=== PATIENT | male | born 1940 | race Caucasian/White ===

== ENCOUNTER → 2017-09-23 | Outpatient (CLI) | payer MEDICARE, BC ==
[~2017-09-23] MED LIST: AMLO2.5T PO; ASPI81TA23 PO; CARV3.12 PO; GLIM2TAB PO; TAMS5CAP PO
[2017-09-23 11:21] LABS: AUTOMATED NEUTROPHIL # 2.6 TH/MM3 (1.8-7.7); BASOPHIL % 0.8 % (0.0-2.0); EOSINOPHIL # 0.1 TH/MM3 (0-0.4); EOSINOPHIL % 1.9 % (0.0-4.0); HEMATOCRIT 38.9 % (39.0-51.0); HEMOGLOBIN 13.3 GM/DL (13.0-17.0); LYMPH % 33.4 % (9.0-44.0); LYMPHOCYTE # 1.6 TH/MM3 (1.0-4.8); MEAN CELL VOLUME 93.3 FL (80.0-100.0); MEAN CORPUSCULAR HGB CONC 34.3 % (32.0-36.0); MEAN PLATELET VOLUME 8.1 FL (7.0-11.0); MONO % 9.1 % (0.0-8.0); MONOCYTE # 0.4 TH/MM3 (0-0.9); NEUT % 54.8 % (16.0-70.0); PLATELET COUNT 163 TH/MM3 (150-450); RED BLOOD COUNT 4.17 MIL/MM3 (4.50-5.90); RED CELL DISTRIBUTION WIDTH 14.2 % (11.6-17.2); WHITE BLOOD COUNT 4.8 TH/MM3 (4.0-11.0)
[2017-09-23 11:24] LABS: BILIRUBIN, URINE NEG (NEG); BLOOD, URINE TRACE (NEG); GLUCOSE,URINE NEG (NEG); KETONE, URINE NEG (NEG); NITRITE,URINE NEG (NEG); PH, URINE 5.5 (5.0-8.5); URINE COLOR LIGHT-YELLOW (YELLW/STRAW); URINE LEUKOCYTE ESTERASE NEG (NEG)
[2017-09-23 11:29] LABS: PROTHROMBIN TIME - PATIENT 10.4 SEC (9.8-11.6)
[2017-09-23 11:38] LABS: WESTERGREN SEDIMENTATION RATE 40 mm/hr (0-20)
[2017-09-23 11:44] LABS: ALBUMIN 3.9 GM/DL (3.4-5.0); ALT (GPT) 23 U/L (12-78); AST (GOT) 17 U/L (15-37); BICARBONATE 26.5 MEQ/L (21.0-32.0); BLOOD UREA NITROGEN 44 MG/DL (7-18); CALCIUM 9.2 MG/DL (8.5-10.1); CHLORIDE 106 MEQ/L (98-107); CREATININE 2.48 MG/DL (0.60-1.30); GLOMERULAR FILTRATION RATE 25 ML/MIN (>89); GLUCOSE,FASTING 183 MG/DL (74-99); SODIUM (NA) 138 MEQ/L (136-145)
[2017-09-23 11:47] LABS: ALKALINE PHOSPHATASE 58 U/L (45-117); TOTAL BILIRUBIN ADULT 0.7 MG/DL (0.2-1.0); TOTAL PROTEIN 8.2 GM/DL (6.4-8.2)
--- NOTE | 2017-09-23 11:59 | RADRPT ---
EXAM DATE/TIME: 09/23/2017 11:24 [facility] COMPARISON: No previous studies available for comparison. INDICATIONS : Evaluate for pneumonia, pneumothorax and communicable diseases. Pre-op knee replacement MEDICAL HISTORY : None. SURGICAL HISTORY : CABG. ENCOUNTER: Initial ACUITY: 1 day PAIN SCORE: 0/10 LOCATION: chest FINDINGS: The cardiac silhouette is normal in transverse diameter. Median sternotomy wires are present. The celeste gs are free of acute parenchymal opacity. No effusions are identified. CONCLUSION: 1. No acute cardiopulmonary disease. Kingsley Briggs MD on September 23, 2017 at 11:56 Board Certified Radiologist. This report was verified electronically.
--- NOTE | 2017-09-23 18:22 | EKG ---
Date Performed: 09/23/2017 Time Performed: 10:48:28 PTAGE: 77 years EKG: Sinus rhythm RIGHT BUNDLE BRANCH BLOCK LEFT POSTERIOR FASCICULAR BLOCK ABNORMAL ECG NO PREVIOUS TRACING DOCTOR: Nelida Mendoza Interpretating Date/Time 09/23/2017 18:19:48
== END ==
LOC: CPRE 10:23
PROVIDERS: ATTEND Orthopaedic Surgery
DX: Z01.812 Encounter for preprocedural laboratory examination (principal); Z01.811 Encounter for preprocedural respiratory examination; Z01.810 Encounter for preprocedural cardiovascular examination; M17.11 Unilateral primary osteoarthritis, right knee; M25.50 Pain in unspecified joint; M79.609 Pain in unspecified limb; I45.10 Unspecified right bundle-branch block; Z96.60 Presence of unspecified orthopedic joint implant
CPT/HCPCS: 36415; 71046; 80053; 81001; 85025; 85610; 85652; 85730; 93005

== ENCOUNTER 2017-10-08 05:30 | Inpatient (IN) | payer MEDICARE, BC ==
[~2017-10-08] VITALS: Ht 177.8 cm; Wt 107.0 kg
[2017-10-08] MEDS ORDERED: CHLORHEXIDINE GLUCONATE 4% SOLN 120 ML BTL TOPICAL SCH (06:00)
[2017-10-08] MEDS ORDERED: ceFAZolin 2 GM PREMIX 50 ML IV SCH (06:00)
[2017-10-08] MEDS ORDERED: POVIDONE IODINE 7.5% SCRUB 118 ML BOTTLE TOPICAL SCH (06:00)
[2017-10-08] MEDS ORDERED: DEXAMETHASONE SOD PHOS 20 MG/5 ML VIAL IV PUSH ONE (06:00)
[2017-10-08] MEDS ORDERED: VANCOMYCIN 1000 MG/NS 250 ML (for <70 kg) IV SCH ×2 (06:00)
[2017-10-08] MEDS ORDERED: LACTATED RINGER'S 1000 ML IV PRN (06:15)
[2017-10-08] MEDS ORDERED: CHLORHEXIDINE GLUCONATE 2 % 1 PACK (2 CLOTHS) TOPICAL PRN (06:15)
[2017-10-08] MEDS ORDERED: POVIDONE IODINE 5% (ANTISEPSIS KIT) 4 APPLICATIONS EACH NARE PRN (06:15)
[2017-10-08] MEDS ORDERED: SODIUM CHLORID 0.9% 500 ML IV PRN (06:15)
[2017-10-08] MEDS ORDERED: METOPROLOL TARTRATE 25 MG TAB PO PRN (06:15)
--- NOTE | 2017-10-08 06:48 | HHI.DCPOC ---
Discharge Care Plan Diagnosis: (1) Primary localized osteoarthrosis, lower leg (2) Status post total knee replacement, right Your Health Problems Are: Difficulty with ADL Goals to Promote Your Health * To prevent worsening of your condition and complications * To maintain your health at the optimal level Directions to Meet Your Goals Take your medications as prescribed Follow your dietary instruction Follow activity as directed Keep your appointments as scheduled Take your immunizations and boosters as scheduled If your symptoms worsen call your PCP, if no PCP go to Urgent Care Center or Emergency Room Smoking is Dangerous to Your Health. Avoid second hand smoke Call the 24-hour hour crisis hotline for domestic abuse at Ramana Loco Oct 08, 2017 06:48
--- NOTE | 2017-10-08 06:49 | HHI.FF ---
Face to Face Verification Diagnosis: (1) Primary localized osteoarthrosis, lower leg (2) Status post total knee replacement, right Physical Therapy Gait training, Transfer training, bed to chair Knee: Total knee Right LE Weight Bearing: WB as tolerated Right LE Range of Motion: Active ROM Nursing Nursing: Gonzalo weems Dressing Changes: Do not change dressing Additional Instructions first dressing change in the office I have seen patient Xavier Marshall on 10/08/17. My clinical findings support the need for the requested home health care services because: Limited ability to care for self High risk of falls I certify that my clinical findings support that this patient is homebound because: Post-op weakness Unsteady gait/balance Ramana Loco Oct 08, 2017 06:49
[2017-10-08] MEDS ORDERED: WALKER WHEELS/F1 MIS (06:51)
[2017-10-08] MEDS ORDERED: COMMODE 3-IN-11 MIS (06:51)
[2017-10-08] MEDS ORDERED: CPMMACHINE (06:51)
[2017-10-08] MEDS ORDERED: BUPIVACAINE LIPOSOME PF 1.3% 20 ML VIAL ONE (07:15)
[2017-10-08] MEDS ORDERED: MIDAZOLAM HCL 2 MG/2 ML VIAL ONE ×2 (07:15→11:01)
[2017-10-08] MEDS ORDERED: GENTAMICIN SULFATE 80 MG/2 ML VIAL ONE (07:28)
[2017-10-08] MEDS ORDERED: FAMOTIDINE 20 MG/2 ML VIAL ONE (07:30)
[2017-10-08] MEDS ORDERED: PROPOFOL 200 MG/20 ML AMP ONE (07:46)
[2017-10-08] MEDS ORDERED: ACETAMINOPHEN 1000 MG/100 ML 100 ML IV ONE (07:53)
[2017-10-08] MEDS ORDERED: ROPIVACAINE PERI-ARTICULAR INJECTION. P-ARTICULR SCH ×5 (08:30)
[2017-10-08] MEDS ORDERED: SODIUM CHLORIDE 0.9% IV SCH ×2 (08:30→11:00)
[2017-10-08] MEDS ORDERED: TRANEXAMIC ACID IV SCH ×2 (08:30→11:00)
[2017-10-08] MEDS: SODIUM CHLOR 0.9% 1000 ML INJ 1,000 ML IV SCH ×2 (10:14→20:26)
[2017-10-08] MEDS ORDERED: diphenhydrAMINE HCL 50 MG/ML VIAL IV PUSH PRN (10:15)
[2017-10-08] MEDS ORDERED: BISACODYL 10 MG SUPP RECTAL PRN (10:15)
[2017-10-08] MEDS ORDERED: ONDANSETRON HCL 4 MG/2 ML VIAL IVP PRN (10:15)
[2017-10-08] MEDS ORDERED: ALUMINUM/MAGNESIUM/SIMETH 30 ML CUP PO PRN (10:15)
[2017-10-08] MEDS ORDERED: NALOXONE HCL 0.4 MG/ML AMP IV PUSH PRN (10:15)
[2017-10-08] MEDS ORDERED: MAGNESIUM HYDROXIDE SUSP 30 ML CUP PO PRN (10:15)
[2017-10-08] MEDS ORDERED: Post-op Orders (for Pharmacy) XX ONE (10:15)
--- NOTE | 2017-10-08 10:24 | PD.OP ---
cc: Dayron Guerrero MD Operative Report Date of Surgery: Oct 08, 2017 Preoperative Diagnosis: Right knee severe osteoarthritis Postoperative Diagnosis: Same Procedure: Right total knee arthroplasty Anesthesia: adductor canal block and spinal Surgeon: Dayron Guerrero Shearing Machine Operator(s): MABEL Jovel The surgical procedure was assisted by my Advanced Registered Nurse Practitioner. My WASTEWATER TREATMENT OPERATOR presence was necessary throughout this case for the manipulation and positioning of the surgical extremity. My WASTEWATER TREATMENT OPERATOR was assisting me throughout the duration of this procedure. The skill set of an Advance Registered Nurse Practitioner was medically necessary to complete this procedure. During the surgical case, the surgical elastic knitter was working at the back table and the Advance Registered Nurse Practitioner was directly assisting me. Operation and Findings: IMPLANTS: DePuy Attune: Patella: size 38. Femur, posterior stabilized size 9. Tibia, rotating platform size 8. Tibial insert, rotating platform, posterior stabilized size 5 mm thickness. ESTIMATED BLOOD LOSS: 150 cc TOURNIQUET TIME: 56 minutes at 250 mmHg pressure. JUSTIFICATION FOR PROCEDURE: The patient has end-stage osteoarthritis to the knee. There is an attached conservative measures pathway form in the chart that describes the nonoperative measures that were undertaken prior to consideration of surgical management. The patient understood the risks and benefits of surgical management. See my office notes for further details PROCEDURE: The patient was brought back to the operative theatre. Adequate anesthesia was obtained. The patient received intravenous vancomycin and Ancef. The lower extremity was prepped and draped in the usual sterile fashion.The leg was exsanguinated, the tourniquet was raised. A standard anterior incision was performed followed by medial parapatellar arthrotomy was performed. End-stage arthritis was identified. Osteotomy of the patella was performed. We drilled holes for the patella. We trialed the patella component. We placed an intramedullary guide into the distal femur. We ultimately resected 14 mm off of the distal femur in 5 degrees of valgus. The remnants of the ACL and PCL were resected. Osteotomy of the proximal tibia was performed, resecting 5 mm off of the medial side. This was done with 3 degrees of posterior slope using an extramedullary guide. The distal end of the guide was placed in the mid aspect of the ankle. The femur was sized, and four chamfer cuts were completed in 3 of external rotation. We then cut the central box in the distal femur to replace the PCL. We resected the remnants of the menisci and removed osteophytes off of the femur and tibia. We then trialed the knee. We punched the tibia for the keel, and then used standard technique to cement in components. Excess cement was removed. We trialed the knee again and the final polyethylene thickness was chosen to provide extension to 0 degrees, and flexion of 140 degrees to gravity. The ligaments were appropriately balanced. Lateral release was necessary to obtain excellent patellofemoral tracking. The tourniquet was released and adequate hemostasis was obtained. An intra- articular injection of a ropivacaine cocktail was injected. The posterior knee was inspected for excess cement, which was removed. The final polyethylene was put into position after thorough irrigation. We then closed deep fascia with a #2 Stratafix followed by skin with 2-0 Vicryl followed by phillip. Postop plan is to weight-bear as tolerated. DVT prophylaxis will be performed with [place], CUONG helton, early mobilization, and Lovenox at 30 mg daily for reduced renal dosing (10 days) followed by postoperative baby aspirin. Dayron Guerrero MD Oct 08, 2017 10:24
[2017-10-08] MEDS ORDERED: DO NOT ADM ANY ANTICOAGULANT DRUGS PRN (10:49)
[2017-10-08] MEDS ORDERED: *MEPERIDINE 25 MG INJ VIAL PERIprocedural Use ONLY ONE (10:51)
[2017-10-08] MEDS ORDERED: MORPHINE SULFATE 2 MG/ML INJ IV PUSH PRN (11:00)
[2017-10-08] MEDS ORDERED: PILL SPLITTER OTHER PRN (11:00)
[2017-10-08] MEDS ORDERED: *morphine SULFATE 10 MG/ML PERIprocedure ONLY ONE ×2 (11:11→11:28)
--- NOTE | 2017-10-08 11:49 | RADRPT ---
EXAM DATE/TIME: 10/08/2017 11:18 [facility] COMPARISON: No previous studies available for comparison. INDICATIONS : Post op right total knee replacement. MEDICAL HISTORY : None. SURGICAL HISTORY : CABG. ENCOUNTER: Initial ACUITY: 1 day PAIN SCORE: 4/10 LOCATION: Right Knee FINDINGS: 2 views of the knee show a total knee prosthesis in good position. No fracture or dislocation is obse rved. Soft tissue swelling is noted. Air and fluid is noted within the joint. CONCLUSION: Total knee arthroplasty in good position. Tyler Escobar Jr., MD on October 08, 2017 at 11:45 Board Certified Radiologist. This report was verified electronically.
[2017-10-08] MEDS ORDERED: HYDROmorphone HCL PF 2 MG/ML VIAL ONE (11:59)
[2017-10-08] MEDS ORDERED: ePHEDrine/NS 25 MG/5 ML SYRINGE IV ONE (12:00)
[2017-10-08] MEDS ORDERED: PROPOFOL 200 MG/20 ML AMP IV ONE (12:00)
[2017-10-08] MEDS ORDERED: LIDOCAINE HCL 1% PF 5 ML SYRINGE OTHER ONE (12:00)
[2017-10-08 15:30] VITALS: BP 149/64; PULSE 72; RESP 18; TEMP 96.4; O2SAT 94
[2017-10-08] MEDS ORDERED: DEXTROSE 50% IN WATER 50 ML VIAL(D50) IV PUSH PRN (16:00)
[2017-10-08] MEDS ORDERED: GLUCAGON 1 MG/ML VIAL OTHER PRN (16:00)
--- NOTE | 2017-10-08 16:11 | PD.CONS ---
HPI Service [facility] Consult Requested By Reason for Consult medical management Primary Care Physician Shalini Bennett MD Diagnoses: History of Present Illness patient is a 77 y/o male with history of osteoarthritis, CAD, hypertension and diabetes underwent right total knee arthroplasty today. at the time of my evaluation he was resting comfortably with no acute distress. pain to the right knee was mild . he denies any other complaints. Review of Systems Constitutional: DENIES: Fever, Weight loss, Chills, Night Sweats Eyes: DENIES: Blurred vision, Diplopia, Vision loss, Double Vision Ears, nose, mouth, throat: DENIES: Tinnitus, Vertigo, Throat pain, Epistaxis Respiratory: DENIES: Apneas, Cough, Snoring, Wheezing, Hemoptysis, Sputum production, Shortness of breath Cardiovascular: DENIES: Chest pain, Palpitations, Syncope, Dyspnea on Exertion , PND, Lower Extremity Edema, Orthopnea, Claudication Gastrointestinal: DENIES: Abdominal pain, Black stools, Bloody stools, Constipation, Diarrhea, Nausea, Vomiting, Difficulty Swallowing, Anorexia Genitourinary: DENIES: Urinary frequency, Urgency, Hematuria, Dysuria Musculoskeletal: COMPLAINS OF: Joint pain (right knee.), DENIES: Muscle aches, Stiffness, Joint Swelling Integumentary: DENIES: Rash Neurologic: DENIES: Abnormal gait, Headache, Localized weakness, Paresthesias, Seizures, Speech Problems, Tremor, Poor Balance Psychiatric: DENIES: Anxiety, Confusion, Mood changes, Depression, Hallucinations, Agitation, Suicidal Ideation, Homicidal Ideation, Delusions Past Family Social History Allergies: Coded Allergies: No Known Allergies (Unverified , 09/23/17) Past Medical History CAD/ hypertension/ diabetes mellitus/ CKD Past Surgical History CABG/ ankle surgery. Reported Medications Amaryl/ Norvasc/ Coreg/aspirin. Active Ordered Medications Inpatient Medications Acetaminophen/ Hydrocodone Bitart ([place] 5-325 Mg) 2 tab Q4H PRN PO PAIN SCALE 5 TO 10; Start 10/08/17 at 10:15 Al Hydrox/Mg Hydrox/Simethicone (Mag-Al Plus Susp Liq) 30 ml Q6H PRN PO INDIGESTION; Start 10/08/17 at 10:15 Amlodipine Besylate (Norvasc) 2.5 mg DAILY PO ; Start 10/09/17 at 09:00 Bisacodyl (Dulcolax Supp) 10 mg DAILY PRN RECTAL CONSTIPATION; Start 10/08/17 at 10:15 Carvedilol (Coreg) 3.125 mg BID PO ; Start 10/08/17 at 21:00 Cefazolin Sodium 1000 mg/Sodium Chloride 100 ml @ 200 mls/hr Q6H IV Last administered on 10/08/17at 14:00; Start 10/08/17 at 14:00; Stop 10/09/17 at 02:29 Cefazolin Sodium/ Dextrose 50 ml @ 100 mls/hr COSMETIC CONSULTANT IV ; Start 10/08/17 at 06 :00; Stop 10/11/17 at 05:59 Chlorhexidine Gluconate (Chlorhexidine 2% Cloth) 3 pack COSMETIC CONSULTANT PRN TOPICAL SEE LABEL COMMENTS Last administered on 10/08/17at 05:50; Start 10/08/17 at 06:15; Stop 10/11/17 at 06:14 Chlorhexidine Gluconate (Hibiclens 4% Top Soln) 1 applic ONCE TOPICAL ; Start at 06:00; Stop 10/11/17 at 05:59 Dexamethasone Sodium Phosphate (Decadron Inj) 10 mg ONCE ONCE IV ; Start at 07:45; Stop 10/09/17 at 07:46 Diphenhydramine HCl (Benadryl Inj) 25 mg Q6H PRN IV PUSH ITCHING; Start at 10:15 Docusate Sodium (Colace) 100 mg BID PO ; Start 10/09/17 at 21:00 Enoxaparin Sodium (Lovenox Inj) 30 mg Q24H SQ ; Start 10/09/17 at 10:00 Glimepiride (Amaryl) 2 mg DAILY PO ; Start 10/09/17 at 09:00 Lactated Ringer's 1,000 ml @ 30 mls/hr Q24H PRN IV SEE LABEL COMMENTS Last administered on 10/08/17at 06:30; Start 10/08/17 at 06:15; Stop 10/11/17 at 06:14 Magnesium Hydroxide (Milk Of Magnesia Liq) 30 ml DAILY PRN PO CONSTIPATION; Start 10/08/17 at 10:15 Metoprolol Tartrate (Lopressor) 25 mg COSMETIC CONSULTANT PRN PO SEE LABEL COMMENTS; Start 10/08/17 at 06:15; Stop 10/11/17 at 06:14 Miscellaneous (Pill Splitter) 1 ea UNSCH PRN OTHER SEE LABEL COMMENTS; Start at 11:00 Miscellaneous Information ALL NURSING DEPARTME... UNSCH PRN .XX SEE LABEL COMMENTS; Start 10/08/17 at 10:49; Stop 10/09/17 at 10:48 Miscellaneous Information (Post-op Orders (for Pharmacy)) STAT ONCE XX ; Start 10/08/17 at 10:15; Stop 10/08/17 at 10:36; Status DC Morphine Sulfate (Morphine Inj) 2 mg Q3H PRN IV PUSH pain greater than 5; Start 10/08/17 at 11:00 Multivitamins/ Minerals Therapeutic (Theragran M Tab) 1 tab BID PO ; Start at 21:00; Stop 12/08/17 at 20:59 Naloxone HCl (Narcan Inj) 0.4 mg UNSCH PRN IV PUSH RESPIRATORY RATE LESS THAN 10; Start 10/08/17 at 10:15 Ondansetron HCl (Zofran Inj) 4 mg Q6H PRN IVP NAUSEA OR VOMITING; Start at 10:15 Povidone Iodine (Betadine 5% Antisepsis Kit) 1 applic COSMETIC CONSULTANT PRN EACH NARE SEE LABEL COMMENTS Last administered on 10/08/17at 06:50; Start 10/08/17 at 06:15; Stop 10/11/17 at 06:14 Povidone Iodine (Betadine 7.5% Scrub) 1 applic ONCE TOPICAL ; Start 10/08/17 at 06:00; Stop 10/11/17 at 05:59 Ropivacaine 24.63 ml/Ketorolac Tromethamine 30 mg/Epinephrine HCl 0.5 mg/ Clonidine 80 mcg/ Sodium Chloride 100 ml @ 200 mls/hr ONCE P-ARTICULR Last administered on 10/08/17at 08:54; Start 10/08/17 at 08:30; Stop 10/08/17 at 14:30; Status DC Sodium Chloride 1,000 ml @ 100 mls/hr Q10H IV Last administered on 10/08/17at 10 :14; Start 10/08/17 at 10:14 Tamsulosin HCl (Flomax) 0.4 mg HS PO ; Start 10/08/17 at 21:00 Tranexamic Acid 1070 mg/Sodium Chloride 110.7 ml @ 200 mls/hr UNSCH IV Last administered on 10/08/17at 11:37; Start 10/08/17 at 11:00; Stop 10/08/17 at 17:00 Vancomycin HCl 1000 mg/Sodium Chloride 250 ml @ 250 mls/hr COSMETIC CONSULTANT IV Last administered on 10/08/17at 07:27; Start 10/08/17 at 06:00; Stop 10/11/17 at 05:59 Zolpidem Tartrate (Ambien) 5 mg HS PRN PO SLEEP; Start 10/08/17 at 21:00 Family History not relevant to this consult. Social History quit smoking years ago- drinks every other day. Physical Exam Vital Signs Vital Signs Date Time Temp Pulse Resp B/P (MAP) Pulse Ox O2 Delivery O2 Flow Rate FiO2 10/08/17 14:27 77 16 147/63 (91) 99 Nasal Cannula 2 10/08/17 11:30 72 16 154/64 (94) 98 Nasal Cannula 2 10/08/17 11:15 72 16 156/68 (97) 98 Nasal Cannula 2 10/08/17 11:00 75 16 122/87 (99) 97 Nasal Cannula 2 10/08/17 10:45 97.8 77 16 122/87 (99) 98 Nasal Cannula 2 10/08/17 07:11 2 10/08/17 06:36 98.8 66 20 154/74 (100) 96 Physical Exam GENERAL: This is a well-nourished, well-developed patient, in no apparent distress. SKIN: No rashes, ecchymoses or lesions. Cool and dry. HEAD: Atraumatic. Normocephalic. No temporal or scalp tenderness. EYES: Pupils equal round and reactive. Extraocular motions intact. No scleral icterus. No injection or drainage. ENT: Nose without bleeding, purulent drainage or septal hematoma. Throat without erythema, tonsillar hypertrophy or exudate. Uvula midline. Airway patent. NECK: Trachea midline. No JVD or lymphadenopathy. Supple, nontender, no meningeal signs. CARDIOVASCULAR: Regular rate and rhythm without murmurs, gallops, or rubs. RESPIRATORY: Clear to auscultation. Breath sounds equal bilaterally. No wheezes , rales, or rhonchi. GASTROINTESTINAL: Abdomen soft, non-tender, nondistended. No hepato-splenomegaly , or palpable masses. No guarding. MUSCULOSKELETAL: right knee/leg covered with clean dressing. NEUROLOGICAL: Awake and alert. Cranial nerves II through XII intact. Motor and sensory grossly within normal limits. Five out of 5 muscle strength in all muscle groups. Normal speech. Imaging Last Impressions Knee X-Ray 10/08/17 1014 Signed Impressions: Service Date/Time: Sunday, October 08, 2017 11:18 - CONCLUSION: Total knee arthroplasty in good position. Tyler Escobar Jr., MD Assessment and Plan Assessment and Plan A/P - osteoarthritis- s/p right total knee arthroplasty continue with pain control and PT- management per ortho. -CAD; resumed coreg- will resume aspirin when ok with ortho. -hypertension; continue home meds- will monitor and adjust the regimen as needed. -diabetes mellitus; hold oral hypoglycemics for now - accu-check with SSI -chronic renal insufficiency; will monitor- BMP tomorrow. -DVT prophylaxis with subq Lovenox- per ortho. thank you for the consult. Discussed Condition With the patient. Faye Molina MD Oct 08, 2017 16:11
[2017-10-08] MEDS: INSULIN ASPART SUPPLEMENTAL SCALE SQ SCH ×2 (18:15→20:29)
[2017-10-08 19:19] VITALS: BP 137/61; PULSE 76; RESP 18; TEMP 96.9; O2SAT 96
[2017-10-08] MEDS: CARVEDILOL 3.125 MG TAB PO SCH (20:29)
[2017-10-08] MEDS: TAMSULOSIN HCL 0.4 MG CAP PO SCH (20:29)
[2017-10-08] MEDS ORDERED: ZOLPIDEM TARTRATE 5 MG TAB PO PRN (21:00)
[2017-10-08 23:20] VITALS: BP 154/68; PULSE 65; RESP 18; TEMP 96.8; O2SAT 98
[2017-10-08] MEDS: ACETAMINOPHEN/HYDROcodone 325 MG/5 MG TAB PO PRN (23:30)
[2017-10-09 03:35] VITALS: BP 129/59; PULSE 71; RESP 18; TEMP 97.1; O2SAT 94
[2017-10-09] MEDS: SODIUM CHLOR 0.9% 1000 ML INJ 1,000 ML IV SCH ×2 (06:14→16:14)
[2017-10-09] MEDS ORDERED: DEXAMETHASONE SOD PHOS 20 MG/5 ML VIAL IV ONE (07:45)
[2017-10-09 07:54] VITALS: BP 151/67; PULSE 60; RESP 17; TEMP 96.6; O2SAT 96
[2017-10-09] MEDS: INSULIN ASPART SUPPLEMENTAL SCALE SQ SCH ×4 (08:00→20:28)
[2017-10-09] MEDS: amLODIPine BESYLATE 5 MG TAB PO SCH (08:03)
[2017-10-09] MEDS: CARVEDILOL 3.125 MG TAB PO SCH ×2 (08:04→20:27)
[2017-10-09] MEDS: ACETAMINOPHEN/HYDROcodone 325 MG/5 MG TAB PO PRN ×4 (08:04→20:27)
[2017-10-09 08:17] LABS: HEMOGLOBIN 11.4 GM/DL (13.0-17.0); MEAN CELL VOLUME 93.1 FL (80.0-100.0); MEAN CORPUSCULAR HEMOGLOBIN 32.3 PG (27.0-34.0); MEAN CORPUSCULAR HGB CONC 34.6 % (32.0-36.0); MEAN PLATELET VOLUME 7.9 FL (7.0-11.0); PLATELET COUNT 159 TH/MM3 (150-450); RED BLOOD COUNT 3.54 MIL/MM3 (4.50-5.90); RED CELL DISTRIBUTION WIDTH 14.3 % (11.6-17.2); WHITE BLOOD COUNT 9.7 TH/MM3 (4.0-11.0)
[2017-10-09 08:39] LABS: BICARBONATE 21.9 MEQ/L (21.0-32.0); CALCIUM 7.9 MG/DL (8.5-10.1); CREATININE 3.22 MG/DL (0.60-1.30)
[2017-10-09] MEDS ORDERED: GLIMEPIRIDE 2 MG TAB PO SCH (09:00)
[2017-10-09] MEDS: ENOXAPARIN SODIUM 30 MG/0.3 ML SYRINGE SQ SCH (10:09)
--- NOTE | 2017-10-09 11:24 | HHI.PR ---
Subjective Remarks in no acute distress. pain is controlled. no new complaints. Objective Vitals Vital Signs Date Time Temp Pulse Resp B/P (MAP) Pulse Ox O2 Delivery O2 Flow Rate FiO2 10/09/17 09:04 18 10/09/17 07:54 96.6 60 17 151/67 (95) 96 10/09/17 03:35 97.1 71 18 129/59 (82) 94 10/08/17 23:20 96.8 65 18 154/68 (96) 98 10/08/17 19:19 96.9 76 18 137/61 (86) 96 10/08/17 15:30 96.4 72 18 149/64 (92) 94 10/08/17 14:27 77 16 147/63 (91) 99 Nasal Cannula 2 10/08/17 11:30 72 16 154/64 (94) 98 Nasal Cannula 2 I/O 10/08/17 10/08/17 10/08/17 10/09/17 10/09/17 10/09/17 07:00 15:00 23:00 07:00 15:00 23:00 Intake Total 1350 ml 360 ml 360 ml Output Total 125 ml Balance 1225 ml 360 ml 360 ml Intake Oral 360 ml 360 ml Other 1350 ml Output Estimated Blood Loss 125 ml # Voids 2 1 # Bowel Movements 0 0 Result Diagram: 10/09/1728 10/09/17 0628 Imaging Last Impressions Knee X-Ray 10/08/17 1014 Signed Impressions: Service Date/Time: Sunday, October 08, 2017 11:18 - CONCLUSION: Total knee arthroplasty in good position. Tyler Escobar Jr., MD Objective Remarks GENERAL: This is a well-nourished, well-developed patient, in no apparent distress. CARDIOVASCULAR: Regular rate and regular rhythm without murmurs, gallops, or rubs. RESPIRATORY: Clear to auscultation. Breath sounds equal bilaterally. No wheezes , rales, or rhonchi. GASTROINTESTINAL: Abdomen soft, non-tender, nondistended. Normal, active bowel sounds MUSCULOSKELETAL: Extremities without clubbing, cyanosis, or edema. NEURO: Alert & Oriented x4 to person, place, time, situation. Moves all ext x4 Medications and IVs Inpatient Medications Acetaminophen/ Hydrocodone Bitart ([place] 5-325 Mg) 2 tab Q4H PRN PO PAIN SCALE 5 TO 10; Start 10/08/17 at 10:15 Al Hydrox/Mg Hydrox/Simethicone (Mag-Al Plus Susp Liq) 30 ml Q6H PRN PO INDIGESTION; Start 10/08/17 at 10:15 Amlodipine Besylate (Norvasc) 2.5 mg DAILY PO Last administered on 10/09/17at 08: 03; Start 10/09/17 at 09:00 Bisacodyl (Dulcolax Supp) 10 mg DAILY PRN RECTAL CONSTIPATION; Start 10/08/17 at 10:15 Carvedilol (Coreg) 3.125 mg BID PO Last administered on 10/09/17at 08:04; Start 10/08/17 at 21:00 Cefazolin Sodium 1000 mg/Sodium Chloride 100 ml @ 200 mls/hr Q6H IV Last administered on 10/09/17at 02:19; Start 10/08/17 at 14:00; Stop 10/09/17 at 02:29; Status DC Cefazolin Sodium/ Dextrose 50 ml @ 100 mls/hr INDUSTRIAL MAINTENANCE TECHNICIAN IV ; Start 10/08/17 at 06 :00; Stop 10/11/17 at 05:59 Chlorhexidine Gluconate (Chlorhexidine 2% Cloth) 3 pack INDUSTRIAL MAINTENANCE TECHNICIAN PRN TOPICAL SEE LABEL COMMENTS Last administered on 10/08/17at 05:50; Start 10/08/17 at 06:15; Stop 10/11/17 at 06:14 Chlorhexidine Gluconate (Hibiclens 4% Top Soln) 1 applic ONCE TOPICAL ; Start at 06:00; Stop 10/11/17 at 05:59 Dexamethasone Sodium Phosphate (Decadron Inj) 10 mg ONCE ONCE IV Last administered on 10/09/17at 08:05; Start 10/09/17 at 07:45; Stop 10/09/17 at 07:46; Status DC Dextrose (D50w (Vial) Inj) 50 ml UNSCH PRN IV PUSH HYPOGLYCEMIA-SEE COMMENTS; Start 10/08/17 at 16:00 Diphenhydramine HCl (Benadryl Inj) 25 mg Q6H PRN IV PUSH ITCHING; Start at 10:15 Docusate Sodium (Colace) 100 mg BID PO ; Start 10/09/17 at 21:00 Enoxaparin Sodium (Lovenox Inj) 30 mg Q24H SQ Last administered on 10/09/17at 10: 09; Start 10/09/17 at 10:00 Glimepiride (Amaryl) 2 mg DAILY PO Last administered on 10/09/17at 08:04; Start 10/09/17 at 09:00; Status Future Hold Glucagon (Glucagon Inj) 1 mg UNSCH PRN OTHER HYPOGLYCEMIA-SEE COMMENTS; Start 10/08/17 at 16:00 Insulin Aspart (NovoLOG SUPPLEMENTAL SCALE) 1 ACHS SLIDING SCALE SQ Last administered on 10/08/17at 20:29; Start 10/08/17 at 17:00 Lactated Ringer's 1,000 ml @ 30 mls/hr Q24H PRN IV SEE LABEL COMMENTS Last administered on 10/08/17at 06:30; Start 10/08/17 at 06:15; Stop 10/08/17 at 16:49; Status DC Magnesium Hydroxide (Milk Of Magnesia Liq) 30 ml DAILY PRN PO CONSTIPATION; Start 10/08/17 at 10:15 Metoprolol Tartrate (Lopressor) 25 mg INDUSTRIAL MAINTENANCE TECHNICIAN PRN PO SEE LABEL COMMENTS; Start 10/08/17 at 06:15; Stop 10/11/17 at 06:14 Miscellaneous (Pill Splitter) 1 ea UNSCH PRN OTHER SEE LABEL COMMENTS; Start at 11:00 Miscellaneous Information ALL NURSING DEPARTME... UNSCH PRN .XX SEE LABEL COMMENTS; Start 10/08/17 at 10:49; Stop 10/09/17 at 10:48; Status DC Miscellaneous Information (Post-op Orders (for Pharmacy)) STAT ONCE XX ; Start 10/08/17 at 10:15; Stop 10/08/17 at 10:36; Status DC Morphine Sulfate (Morphine Inj) 2 mg Q3H PRN IV PUSH pain greater than 5; Start 10/08/17 at 11:00 Multivitamins/ Minerals Therapeutic (Theragran M Tab) 1 tab BID PO ; Start at 21:00; Stop 12/08/17 at 20:59 Naloxone HCl (Narcan Inj) 0.4 mg UNSCH PRN IV PUSH RESPIRATORY RATE LESS THAN 10; Start 10/08/17 at 10:15 Ondansetron HCl (Zofran Inj) 4 mg Q6H PRN IVP NAUSEA OR VOMITING; Start at 10:15 Povidone Iodine (Betadine 5% Antisepsis Kit) 1 applic INDUSTRIAL MAINTENANCE TECHNICIAN PRN EACH NARE SEE LABEL COMMENTS Last administered on 10/08/17at 06:50; Start 10/08/17 at 06:15; Stop 10/11/17 at 06:14 Povidone Iodine (Betadine 7.5% Scrub) 1 applic ONCE TOPICAL ; Start 10/08/17 at 06:00; Stop 10/11/17 at 05:59 Ropivacaine 24.63 ml/Ketorolac Tromethamine 30 mg/Epinephrine HCl 0.5 mg/ Clonidine 80 mcg/ Sodium Chloride 100 ml @ 200 mls/hr ONCE P-ARTICULR Last administered on 10/08/17at 08:54; Start 10/08/17 at 08:30; Stop 10/08/17 at 14:30; Status DC Sodium Chloride 1,000 ml @ 100 mls/hr Q10H IV Last administered on 10/08/17at 20 :26; Start 10/08/17 at 10:14 Tamsulosin HCl (Flomax) 0.4 mg HS PO Last administered on 10/08/17at 20:29; Start 10/08/17 at 21:00 Tranexamic Acid 1070 mg/Sodium Chloride 110.7 ml @ 200 mls/hr UNSCH IV Last administered on 10/08/17at 11:37; Start 10/08/17 at 11:00; Stop 10/08/17 at 17:00; Status DC Vancomycin HCl 1000 mg/Sodium Chloride 250 ml @ 250 mls/hr INDUSTRIAL MAINTENANCE TECHNICIAN IV Last administered on 10/08/17at 07:27; Start 10/08/17 at 06:00; Stop 10/11/17 at 05:59 Zolpidem Tartrate (Ambien) 5 mg HS PRN PO SLEEP; Start 10/08/17 at 21:00 A/P Assessment and Plan - osteoarthritis- s/p right total knee arthroplasty continue with pain control and PT- management per ortho. -CAD; resumed coreg- will resume aspirin when ok with ortho. -hypertension; continue home meds- will monitor and adjust the regimen as needed. -diabetes mellitus; hold oral hypoglycemics for now - accu-check with SSI -acute kidney injury superimposed on chronic renal insufficiency;continue IV fluid- will monitor- BMP tomorrow. -DVT prophylaxis with subq Lovenox- per ortho. Discharge Planning medically not ready for discharge yet due to worsening kidney function. Faye Molina MD Oct 09, 2017 11:24
[2017-10-09 12:00] VITALS: BP 138/70; PULSE 70; RESP 17; TEMP 97.2; O2SAT 96
--- NOTE | 2017-10-09 12:42 | PD.ORT.PN ---
Subjective Post Op Day #: 1 Subjective Remarks The patient is OOB in chair with mild pain to the right knee. at bedside. Patient has been ambulatory and wants to go home today. Patient understands his kidney function is poor and will likely need to stay at least one more night to have this managed medically. Objective Vitals Vital Signs Date Time Temp Pulse Resp B/P (MAP) Pulse Ox O2 Delivery O2 Flow Rate FiO2 10/09/17 09:04 18 10/09/17 07:54 96.6 60 17 151/67 (95) 96 10/09/17 03:35 97.1 71 18 129/59 (82) 94 10/08/17 23:20 96.8 65 18 154/68 (96) 98 10/08/17 19:19 96.9 76 18 137/61 (86) 96 10/08/17 15:30 96.4 72 18 149/64 (92) 94 10/08/17 14:27 77 16 147/63 (91) 99 Nasal Cannula 2 I/O 10/08/17 10/08/17 10/08/17 10/09/17 10/09/17 10/09/17 07:00 15:00 23:00 07:00 15:00 23:00 Intake Total 1350 ml 360 ml 360 ml Output Total 125 ml Balance 1225 ml 360 ml 360 ml Intake Oral 360 ml 360 ml Other 1350 ml Output Estimated Blood Loss 125 ml # Voids 2 1 # Bowel Movements 0 0 Result Diagram: 10/09/17 0628 10/09/17 0628 Procedures Right TKA Objective Remarks Dressing is C/D/I. EHL/EHL/TA. 2+ pedal pulse. Calf is soft and nontender. + SILT. Assessment & Plan Ortho Post Op Day #: 1 Problem List: Assessment and Plan POD #1: Right TKA 1. WBAT RLE 2. Lovenox followed by ASA for DVT prophylaxis. Patient is on a reduced dose of 30 mg daily secondary to known Stage 4 CKD 3. Ice to the right knee PRN 4. Stable for discharge home with home health once medically cleared. 5. F/U in the office with Dr. Guerrero or MABEL Cummings as previously scheduled. Ramana Loco Oct 09, 2017 12:42
[2017-10-09 16:00] VITALS: BP 140/70; PULSE 65; RESP 17; TEMP 96.5; O2SAT 96
[2017-10-09] MEDS ORDERED: TRAD5TAB PO (16:58)
[2017-10-09] MEDS: MULTIVITAMINS/MINERALS THERAPEUTIC TAB PO SCH (20:26)
[2017-10-09] MEDS: DOCUSATE SODIUM 100 MG CAP PO SCH (20:26)
[2017-10-09] MEDS: TAMSULOSIN HCL 0.4 MG CAP PO SCH (20:27)
[2017-10-09 20:30] VITALS: BP 161/69; PULSE 62; RESP 16; TEMP 96.8; O2SAT 98
[2017-10-10 00:25] VITALS: BP 162/69; PULSE 63; RESP 17; TEMP 96.9; O2SAT 96
[2017-10-10 05:04] LABS: HEMATOCRIT 30.5 % (39.0-51.0); HEMOGLOBIN 10.6 GM/DL (13.0-17.0); MEAN CELL VOLUME 93.3 FL (80.0-100.0); MEAN CORPUSCULAR HEMOGLOBIN 32.4 PG (27.0-34.0); MEAN CORPUSCULAR HGB CONC 34.8 % (32.0-36.0); MEAN PLATELET VOLUME 8.3 FL (7.0-11.0); PLATELET COUNT 139 TH/MM3 (150-450); RED BLOOD COUNT 3.27 MIL/MM3 (4.50-5.90); RED CELL DISTRIBUTION WIDTH 14.3 % (11.6-17.2); WHITE BLOOD COUNT 7.6 TH/MM3 (4.0-11.0)
[2017-10-10] MEDS: ACETAMINOPHEN/HYDROcodone 325 MG/5 MG TAB PO PRN ×3 (05:26→13:54)
[2017-10-10 05:27] LABS: BICARBONATE 23.2 MEQ/L (21.0-32.0); CALCIUM 8.1 MG/DL (8.5-10.1); CREATININE 2.93 MG/DL (0.60-1.30)
[2017-10-10 07:30] VITALS: BP 146/75; PULSE 60; RESP 18; TEMP 96.9; O2SAT 96
[2017-10-10] MEDS: INSULIN ASPART SUPPLEMENTAL SCALE SQ SCH ×2 (08:00→12:05)
[2017-10-10] MEDS: SODIUM CHLOR 0.9% 1000 ML INJ 1,000 ML IV SCH (08:06)
[2017-10-10] MEDS: MULTIVITAMINS/MINERALS THERAPEUTIC TAB PO SCH (09:00)
[2017-10-10] MEDS: DOCUSATE SODIUM 100 MG CAP PO SCH (09:27)
[2017-10-10] MEDS: CARVEDILOL 3.125 MG TAB PO SCH (09:27)
[2017-10-10] MEDS: amLODIPine BESYLATE 5 MG TAB PO SCH (09:28)
[2017-10-10] MEDS: ENOXAPARIN SODIUM 30 MG/0.3 ML SYRINGE SQ SCH (09:29)
[2017-10-10 11:35] VITALS: BP 157/72; PULSE 58; RESP 18; TEMP 97.8; O2SAT 98
--- NOTE | 2017-10-10 12:14 | HHI.PR ---
Subjective Remarks in no acute distress. pain is fairly controlled. no new complaints. Objective Vitals Vital Signs Date Time Temp Pulse Resp B/P (MAP) Pulse Ox O2 Delivery O2 Flow Rate FiO2 10/10/17 11:35 97.8 58 18 157/72 (100) 98 10/10/17 07:30 96.9 60 18 146/75 (98) 96 10/10/17 00:25 96.9 63 17 162/69 (100) 96 10/09/17 20:30 96.8 62 16 161/69 (99) 98 10/09/17 17:44 18 10/09/17 16:00 96.5 65 17 140/70 (93) 96 I/O 10/09/17 10/09/17 10/09/17 10/10/17 10/10/17 10/10/17 07:00 15:00 23:00 07:00 15:00 23:00 Intake Total 360 ml 650 ml 360 ml Balance 360 ml 650 ml 360 ml Intake Oral 360 ml 650 ml 360 ml # Voids 1 4 1 # Bowel Movements 0 0 Result Diagram: 10/10/17 0420 10/10/17 0420 Imaging Last Impressions Knee X-Ray 10/08/17 1014 Signed Impressions: Service Date/Time: Sunday, October 08, 2017 11:18 - CONCLUSION: Total knee arthroplasty in good position. Tyler Escobar Jr., MD Objective Remarks GENERAL: This is a well-nourished, well-developed patient, in no apparent distress. CARDIOVASCULAR: Regular rate and regular rhythm without murmurs, gallops, or rubs. RESPIRATORY: Clear to auscultation. Breath sounds equal bilaterally. No wheezes , rales, or rhonchi. GASTROINTESTINAL: Abdomen soft, non-tender, nondistended. Normal, active bowel sounds MUSCULOSKELETAL: Extremities without clubbing, cyanosis, or edema. NEURO: Alert & Oriented x4 to person, place, time, situation. Moves all ext x4 Medications and IVs Inpatient Medications Acetaminophen/ Hydrocodone Bitart ([place] 5-325 Mg) 2 tab Q4H PRN PO PAIN SCALE 5 TO 10 Last administered on 10/10/17at 09:31; Start 10/08/17 at 10:15 Al Hydrox/Mg Hydrox/Simethicone (Mag-Al Plus Susp Liq) 30 ml Q6H PRN PO INDIGESTION; Start 10/08/17 at 10:15 Amlodipine Besylate (Norvasc) 2.5 mg DAILY PO Last administered on 10/10/17at 09: 28; Start 10/09/17 at 09:00 Bisacodyl (Dulcolax Supp) 10 mg DAILY PRN RECTAL CONSTIPATION; Start 10/08/17 at 10:15 Carvedilol (Coreg) 3.125 mg BID PO Last administered on 10/10/17at 09:27; Start 10/08/17 at 21:00 Cefazolin Sodium 1000 mg/Sodium Chloride 100 ml @ 200 mls/hr Q6H IV Last administered on 10/09/17at 02:19; Start 10/08/17 at 14:00; Stop 10/09/17 at 02:29; Status DC Cefazolin Sodium/ Dextrose 50 ml @ 100 mls/hr FLATWORK TIER IV ; Start 10/08/17 at 06 :00; Stop 10/11/17 at 05:59 Chlorhexidine Gluconate (Chlorhexidine 2% Cloth) 3 pack FLATWORK TIER PRN TOPICAL SEE LABEL COMMENTS Last administered on 10/08/17at 05:50; Start 10/08/17 at 06:15; Stop 10/11/17 at 06:14 Chlorhexidine Gluconate (Hibiclens 4% Top Soln) 1 applic ONCE TOPICAL ; Start at 06:00; Stop 10/11/17 at 05:59 Dexamethasone Sodium Phosphate (Decadron Inj) 10 mg ONCE ONCE IV Last administered on 10/09/17at 08:05; Start 10/09/17 at 07:45; Stop 10/09/17 at 07:46; Status DC Dextrose (D50w (Vial) Inj) 50 ml UNSCH PRN IV PUSH HYPOGLYCEMIA-SEE COMMENTS; Start 10/08/17 at 16:00 Diphenhydramine HCl (Benadryl Inj) 25 mg Q6H PRN IV PUSH ITCHING; Start at 10:15 Docusate Sodium (Colace) 100 mg BID PO Last administered on 10/10/17at 09:27; Start 10/09/17 at 21:00 Enoxaparin Sodium (Lovenox Inj) 30 mg Q24H SQ Last administered on 10/10/17at 09: 29; Start 10/09/17 at 10:00 Glimepiride (Amaryl) 2 mg DAILY PO Last administered on 10/09/17at 08:04; Start 10/09/17 at 09:00; Status Future Hold Glucagon (Glucagon Inj) 1 mg UNSCH PRN OTHER HYPOGLYCEMIA-SEE COMMENTS; Start 10/08/17 at 16:00 Insulin Aspart (NovoLOG SUPPLEMENTAL SCALE) 1 ACHS SLIDING SCALE SQ Last administered on 10/10/17at 12:05; Start 10/08/17 at 17:00 Lactated Ringer's 1,000 ml @ 30 mls/hr Q24H PRN IV SEE LABEL COMMENTS Last administered on 10/08/17at 06:30; Start 10/08/17 at 06:15; Stop 10/08/17 at 16:49; Status DC Magnesium Hydroxide (Milk Of Magnesia Liq) 30 ml DAILY PRN PO CONSTIPATION; Start 10/08/17 at 10:15 Metoprolol Tartrate (Lopressor) 25 mg FLATWORK TIER PRN PO SEE LABEL COMMENTS; Start 10/08/17 at 06:15; Stop 10/11/17 at 06:14 Miscellaneous (Pill Splitter) 1 ea UNSCH PRN OTHER SEE LABEL COMMENTS; Start at 11:00 Miscellaneous Information ALL NURSING DEPARTME... UNSCH PRN .XX SEE LABEL COMMENTS; Start 10/08/17 at 10:49; Stop 10/09/17 at 10:48; Status DC Miscellaneous Information (Post-op Orders (for Pharmacy)) STAT ONCE XX ; Start 10/08/17 at 10:15; Stop 10/08/17 at 10:36; Status DC Morphine Sulfate (Morphine Inj) 2 mg Q3H PRN IV PUSH pain greater than 5; Start 10/08/17 at 11:00 Multivitamins/ Minerals Therapeutic (Theragran M Tab) 1 tab BID PO Last administered on 10/10/17at 09:00; Start 10/09/17 at 21:00; Stop 12/08/17 at 20:59 Naloxone HCl (Narcan Inj) 0.4 mg UNSCH PRN IV PUSH RESPIRATORY RATE LESS THAN 10; Start 10/08/17 at 10:15 Ondansetron HCl (Zofran Inj) 4 mg Q6H PRN IVP NAUSEA OR VOMITING; Start at 10:15 Povidone Iodine (Betadine 5% Antisepsis Kit) 1 applic FLATWORK TIER PRN EACH NARE SEE LABEL COMMENTS Last administered on 10/08/17at 06:50; Start 10/08/17 at 06:15; Stop 10/11/17 at 06:14 Povidone Iodine (Betadine 7.5% Scrub) 1 applic ONCE TOPICAL ; Start 10/08/17 at 06:00; Stop 10/11/17 at 05:59 Ropivacaine 24.63 ml/Ketorolac Tromethamine 30 mg/Epinephrine HCl 0.5 mg/ Clonidine 80 mcg/ Sodium Chloride 100 ml @ 200 mls/hr ONCE P-ARTICULR Last administered on 10/08/17at 08:54; Start 10/08/17 at 08:30; Stop 10/08/17 at 14:30; Status DC Sodium Chloride 1,000 ml @ 60 mls/hr [id number] IV Last administered on 10/08/17at 20:26; Start 10/08/17 at 10:14 Tamsulosin HCl (Flomax) 0.4 mg HS PO Last administered on 10/09/17at 20:27; Start 10/08/17 at 21:00 Tranexamic Acid 1070 mg/Sodium Chloride 110.7 ml @ 200 mls/hr UNSCH IV Last administered on 10/08/17at 11:37; Start 10/08/17 at 11:00; Stop 10/08/17 at 17:00; Status DC Vancomycin HCl 1000 mg/Sodium Chloride 250 ml @ 250 mls/hr FLATWORK TIER IV Last administered on 10/08/17at 07:27; Start 10/08/17 at 06:00; Stop 10/11/17 at 05:59 Zolpidem Tartrate (Ambien) 5 mg HS PRN PO SLEEP; Start 10/08/17 at 21:00 A/P Assessment and Plan - osteoarthritis- s/p right total knee arthroplasty continue with pain control and PT- management per ortho. -CAD; resumed coreg- will resume aspirin when ok with ortho. ( d/w RN) -hypertension; continue home meds- will monitor and adjust the regimen as needed. -diabetes mellitus; hold oral hypoglycemics for now - accu-check with SSI -acute kidney injury superimposed on chronic renal insufficiency;better on IV fluid. 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 -DVT prophylaxis with subq Lovenox- per ortho. Discharge Planning dc planning per ortho. Faye Molina MD Oct 10, 2017 12:14
--- NOTE | 2017-10-15 21:39 | HHI.DS ---
Discharge Summary Admission Date Oct 08, 2017 at 10:17 Discharge Date: Oct 10, 2017 Admitting Diagnosis Primary localized OA, lower leg Status post total knee replacement, right Diagnosis: (1) Primary localized osteoarthrosis, lower leg Diagnosis: Principal ICD Codes: M17.10 - Unilateral primary osteoarthritis, unspecified knee (2) Status post total knee replacement, right Diagnosis: Principal ICD Codes: Z96.651 - Presence of right artificial knee joint Procedures Right TKA Brief History This is a 77 year old male patient with severe right knee OA. PE at Discharge Dressing is C/D/I. EHL/EHL/TA. 2+ pedal pulse. Calf is soft and nontender. + SILT. Hospital Course The patient was admitted to the hospital for severe OA of the right knee to have a right TKA. The patient's surgery went well with no complications. The patient is WBAT on the RLE. The patient will take Lovenox followed by ASA for DVT prophylaxis. Lovenox dosage was modified to account for CKD. The patient is on a diabetic diet. The patient was discharged to home with home health and will f/u with Dr. Guerrero or MABEL Cummings as previously scheduled. Pt Condition on Discharge: Stable Discharge Disposition: Disch w/ Home Health Serv Discharge Instructions Diet Instructions: Diabetic Diet Activities You Can Perform: Weight Bearing as Dominic Activities to Avoid: Strenuous Activity Follow up Referrals: Orthopedics with Dayron Guerrero MD New Medications: Commode 3-in-1 (Commode 3-in-1) 1 Mis Mis EA .XX DIRECTED, #1 0 Refills CPM-Continuous Passive Motion Machine (CPM-Continuous Passive Motion Machine) 1 Ea Device EA .XX DIRECTED, #1 0 Refills Walker with Front Wheels (Walker with Front Wheels) 1 Mis Mis EA .XX DIRECTED, #1 0 Refills Continued Medications: Amlodipine (Amlodipine) 2.5 Mg Tab 1 TAB PO DAILY for Blood Pressure Management, #30 TAB 0 Refills Carvedilol (Carvedilol) 3.125 Mg Tab 1 TAB PO BID, #60 TAB 0 Refills Glimepiride (Glimepiride) 2 Mg Tab 2 MG PO DAILY for Blood Sugar Management, #30 TAB 0 Refills Take with breakfast or first main meal Tamsulosin (Flomax) 0.4 Mg Cap 0.4 MG PO HS for Manage Prostate Problems, #30 CAP 0 Refills Discontinued Medications: Aspirin (Aspirin EC) 81 Mg Tabdr 81 MG PO DAILY, TAB 0 Refills Ramana Loco Oct 15, 2017 21:39
== END 2017-10-10 14:43 | disposition home health service (06) | DRG 470 ==
LOC: HSDC 05:30 → EDUNIT# 08:30 → HSDI 10:17 → N06B 15:38
PROVIDERS: ADMIT Orthopaedic Surgery; ATTEND Orthopaedic Surgery
PROC: 3E0T3BZ Introduction of Anesthetic Agent into Peripheral Nerves and Plexi, Percutaneous Approach (ICD-10-PCS; 2017-10-08)
PROC: 0SRC0J9 Replacement of Right Knee Joint with Synthetic Substitute, Cemented, Open Approach (ICD-10-PCS; principal; 2017-10-08 07:54)
DX: M17.11 Unilateral primary osteoarthritis, right knee (principal); N18.4 Chronic kidney disease, stage 4 (severe); N17.9 Acute kidney failure, unspecified; E11.9 Type 2 diabetes mellitus without complications; E11.22 Type 2 diabetes mellitus with diabetic chronic kidney disease; N40.0 Benign prostatic hyperplasia without lower urinary tract symptoms; I25.10 Atherosclerotic heart disease of native coronary artery without angina pectoris; I12.9 Hypertensive chronic kidney disease with stage 1 through stage 4 chronic kidney disease, or unspecified chronic kidney disease; Z79.84 Long term (current) use of oral hypoglycemic drugs; Z87.891 Personal history of nicotine dependence; Z95.1 Presence of aortocoronary bypass graft
CPT/HCPCS: 73560; 80048; 82948; 85027; 86850; 86900; 86901; 94150; C1776; C9290; J0131; J0690; J0735; J1100; J1170; J1580; J1650; J1815; J1885; J2175; J2250; J2270; J2795; J3370; J7030; J7050; J7120; L1830